=== PATIENT | female | born 1995 | race Caucasian/White ===

== ENCOUNTER 2016-12-05 07:22 | Day surgery (SDC) | payer BC ==
[~2016-12-05] VITALS: Ht 160 cm; Wt 54.0 kg
[2016-12-05 07:59] VITALS: O2SAT 99
[2016-12-05] MEDS ORDERED: CEFAZOLIN SOD 1 GM/ ISO 50 ML PREMIX IV ONE (08:45)
[2016-12-05] MEDS ORDERED: CEFAZOLIN 1 GM IVPB PREMIX 50 ML IV ONE ×2 (08:58→14:00)
[2016-12-05] MEDS ORDERED: LR 1,000 ML IV SCH (10:17)
[2016-12-05] MEDS ORDERED: MEPERIDINE HCL/PF 25 MG/ML DISP.SYRIN IVP PRN (10:30)
[2016-12-05] MEDS ORDERED: MEPERIDINE HCL/PF 50 MG/ML AMP IVP PRN ×2 (10:30)
[2016-12-05] MEDS ORDERED: METOCLOPRAMIDE HCL 10 MG/2 ML VIAL IVP PRN (10:30)
[2016-12-05] MEDS ORDERED: HYDROcodone/ACETAMIN 5-325 MG TAB (NORCO/ VICODIN) PO PRN (10:45)
[2016-12-05] MEDS ORDERED: OXYCODONE/ACETAMINOPHEN 5-325 TABLET PO PRN (10:45)
[2016-12-05] MEDS ORDERED: SIMETHICONE 80 MG TAB.CHEW PO SCH (10:45)
[2016-12-05] MEDS ORDERED: ONDANSETRON HCL 4 MG/2 ML VIAL IVP PRN (10:45)
[2016-12-05 11:13] VITALS: BP 118/64; PULSE 69; RESP 16
[2016-12-05] MEDS ORDERED: NS IRRIG SOLN 1000 ML IR ONE (14:00)
[2016-12-05] MEDS ORDERED: GLYCOPYRROLATE 0.2 MG/ML VIAL ONE (14:00)
[2016-12-05] MEDS ORDERED: MIDAZOLAM HCL 5 MG/5 ML VIAL ONE (14:00)
[2016-12-05] MEDS ORDERED: NEOSTIGMINE METHYLSULFATE 1 MG/ML, 10 ML VIAL ONE (14:00)
[2016-12-05] MEDS ORDERED: PROPOFOL 200MG/ 20ML VIAL (DIPRIVAN) IV ONE (14:00)
[2016-12-05] MEDS ORDERED: KETOROLAC TROMETHAMINE 30 MG VIAL ONE (14:00)
[2016-12-05] MEDS ORDERED: LR 1,000 ML IV.SOLN IV ONE (14:00)
[2016-12-05] MEDS ORDERED: fentaNYL CITRATE 250 MCG/5 ML AMP ONE (14:00)
[2016-12-05] MEDS ORDERED: ONDANSETRON HCL 4 MG/2 ML VIAL ONE (14:00)
[2016-12-05] MEDS ORDERED: ROCURONIUM BROMIDE 10 MG/ML (ZEMURON) ONE (14:00)
[2016-12-05] MEDS ORDERED: SEVOFLURANE 15 MIN GAS INH ONE (14:00)
== END 2016-12-05 11:50 | disposition home or self-care (01) ==
LOC: SDS 07:22 → SMU 07:25 → SDS 11:50
PROVIDERS: ATTEND Specialist
DX: T83.32XA Displacement of intrauterine contraceptive device, initial encounter (principal); N91.2 Amenorrhea, unspecified; N85.2 Hypertrophy of uterus
CPT/HCPCS: 49329; 58350; 58558; 88300; 88305; C1727; J0690; J1885; J2250; J2405; J2704; J2710; J3010; J3490; J7120

== ENCOUNTER 2019-06-22 23:12 | Emergency (ER) | payer BC ==
[~2019-06-22] VITALS: Ht 160 cm; Wt 59.0 kg
[2019-06-22 23:26] VITALS: BP_SYST 123
[2019-06-23 00:19] LABS: BILIRUBIN,URINE NEGATIVE (NEGATIVE); BLOOD, URINE NEGATIVE (NEGATIVE); CLARITY/URINE CLEAR (CLEAR); COLOR,URINE YELLOW (YELLOW); GLUCOSE,URINE NEGATIVE (NEGATIVE); KETONES,URINE NEGATIVE (NEGATIVE); LEUKOCYTE ESTERASE ,URINE NEGATIVE (NEGATIVE); NITRITE, URINE NEGATIVE (NEGATIVE); PROTEIN URINE NEGATIVE (NEGATIVE); UROBILINOGEN,URINE 0.2 (0.2-1.0)
[2019-06-23 00:39] LABS: STREPTOCOCCUS A SCREEN (RAPID) NEGATIVE (NEGATIVE)
[2019-06-23 00:41] LABS: INFLUENZA A&B ANTIGEN SCREEN NEGATIVE FOR A & B (NEGATIVE)
--- NOTE | 2019-06-23 01:17 | NUR ---
patient bib boyfriend with c/o throat and generalized aches and pains x 3 days. patient states she isn't holding anything down but tolerated a PO challenge. throat is red and patient can speak without pain or horesness at this time. no other complaint or injury at this time.
--- NOTE | 2019-06-23 01:18 | NUR ---
ER at bedside examining patient.
--- NOTE | 2019-06-23 01:18 | NUR ---
ER at bedside examining patient.
[2019-06-23 01:59] VITALS: BP_SYST 123
--- NOTE | 2019-06-23 01:59 | NUR ---
Patient given written and verbal discharge instructions and verbalizes understanding. ER MD discussed with patient the results and treatment provided. Patient in stable condition. ID arm band removed. Rx of [place] 5, Zofran, Zithromax given. Patient educated on pain management and to follow up with PMD. Pain Scale 0/10. Opportunity for questions provided and answered. Medication side effect fact sheet provided.
== END 2019-06-23 01:59 | disposition home or self-care (01) ==
LOC: SED 23:12
DX: J39.1 Other abscess of pharynx (principal)
CPT/HCPCS: 36415; 81003; 81025; 86403; 86710; 87081; 99283

== ENCOUNTER 2020-11-14 10:12 | Outpatient (CLI) | payer BC | END 2020-11-14 20:48 | disposition home or self-care (01) | LOC: SRD 10:12 | PROVIDERS: ATTEND Specialist | DX: N97.9 Female infertility, unspecified (principal); Q51.811 Hypoplasia of uterus | CPT/HCPCS: 58340; 74740; C1751; Q9967 ==

== ENCOUNTER 2021-05-16 11:54 | Emergency (ER) | payer BC, SELFPAY ==
[~2021-05-16] VITALS: Ht 157.5 cm; Wt 52.6 kg
[2021-05-16 12:05] VITALS: BP_SYST 134
--- NOTE | 2021-05-16 12:05 | NUR ---
Patient triaged and placed in TENT. VSS and patient appears in no acute distress at this time. Accompanied by SELF, awaiting available bed, and MD notified of need for MSE.
[2021-05-16 12:52] LABS: BASOPHILS % (AUTO) 0.4 % (0.0-2.0); HEMATOCRIT 40.4 % (36-48); HEMOGLOBIN 14.2 g/dL (12.0-16.0); LYMPHOCYTES # (AUTO) 1.7 K/uL (1.0-5.5); LYMPHOCYTES % (AUTO) 21.8 % (20.5-51.5); MEAN CORPUSCULAR HEMOGLOBIN 31 pg (27-31); MEAN CORPUSCULAR HGB CONC 35 % (32-36); MEAN CORPUSCULAR VOLUME 87 fL (79.0-98.0); MONOCYTES # (AUTO) 0.4 K/uL (0.0-1.0); MONOCYTES % (AUTO) 5.7 % (1.7-9.3); NEUTROPHILS # (AUTO) 5.7 K/uL (1.8-7.7); NEUTROPHILS % (AUTO) 72.1 % (40.0-70.0); PLATELET COUNT (AUTO) 357 K/uL (130-430); RED BLOOD CELL COUNT(AUTO) 4.63 MIL/uL (4.2-6.2); WHITE BLOOD COUNT (AUTO) 7.8 K/uL (4.8-10.8)
[2021-05-16 13:06] LABS: CALCIUM 8.7 mg/dL (8.4-11.0); CREATININE 0.76 mg/dL (0.55-1.30); POTASSIUM 3.9 mmol/L (3.5-5.1)
[2021-05-16 13:11] LABS: ALBUMIN 3.8 g/dL (3.4-4.8); TOTAL BILIRUBIN 0.3 mg/dL (0.0-1.0)
[2021-05-16 13:12] LABS: PROTHROMBIN TIME 10.8 SECS (9.5-12.5)
--- NOTE | 2021-05-16 15:04 | NUR ---
Pt brought by self, A&Ox4, pt presents to ER with weakness, states she was covid positive 10 days ago and negative today, skin pink and warm, cap refill <3, VSS, afebrile, will cont to monitor.
[2021-05-16] MEDS ORDERED: ONDA-8 TL (15:05)
--- NOTE | 2021-05-16 15:05 | NUR ---
DR VERA OUTSIDE TO TRIAGE TENT FOR EVALUATION
[2021-05-16 15:58] VITALS: BP_SYST 121
--- NOTE | 2021-05-16 15:59 | NUR ---
Patient given written and verbal discharge instructions and verbalizes understanding. ER MD discussed with patient the results and treatment provided. Patient in stable condition. ID arm band removed. Rx of ZOFRAN given. Patient educated on pain management and to follow up with PMD. Pain Scale 0/10. Opportunity for questions provided and answered. Medication side effect fact sheet provided.
== END 2021-05-16 15:59 | disposition home or self-care (01) ==
LOC: SED 11:54
DX: E86.0 Dehydration (principal); Z20.822 Contact with and (suspected) exposure to COVID-19
CPT/HCPCS: 36415; 80053; 85025; 85610-TC; 85730-TC; 99283